=== PATIENT | male | born 1955 | race Caucasian/White ===

== ENCOUNTER → 2024-03-04 10:40 | Outpatient (BNVA) | payer MEDICARE, SELFPAY | PROVIDERS: PCP Registered Nurse; Referring Provider Registered Nurse; Visit Provider Podiatrist | DX: E11.9 Type 2 diabetes mellitus without complications (principal); M25.561 Pain in right knee; M25.562 Pain in left knee | CPT/HCPCS: 97760; 99203 ==

== ENCOUNTER → 2024-03-04 12:15 | Outpatient (CLI) | payer MEDICARE, SELFPAY ==
--- NOTE | 2024-03-04 12:08 | DI.RAD_ITS ---
Exam(s) XR FOOT RT COMPLETE EXAM: XR FOOT RT COMPLETE CLINICAL HISTORY: pain in right foot, M79.671. TECHNIQUE: 2D digital imaging was performed. COMPARISON: No exams were available for comparison FINDINGS: 3 views There is no evidence of fracture or diastasis of the Lisfranc joint. Great toe metatarsophalangeal j oint exhibits mild degenerative change. Other MTP joints appear unremarkable. On the medial aspect of the foot there is a sesamoid bone adjacent to the navicular tuberosity, this within the distal tibialis posterior tendon. No pes planus. Tiny inferior calcaneal spur. Some vascular calcification is also noted in this foot . IMPRESSION: As above. DATA REPOSITORY: RADIATION DOSE DELIVERED:
--- NOTE | 2024-03-04 12:18 | DI.RAD_ITS ---
Exam(s) XR FOOT LT COMPLETE EXAM: XR FOOT LT COMPLETE CLINICAL HISTORY: pain in left foot, M79.672. TECHNIQUE: 2D digital imaging was performed. COMPARISON: CR XR FOOT RT COMPLETE from 03/04/2024 FINDINGS: 3 views No evidence of fracture or diastasis of the Lisfranc joint. Some vascular calcifications noted at th e midfoot level. Also in the dorsalis pedis artery more proximally in the foot and in the posterior tibial arteries at the ankle level. The more medial of the 2 sesamoid bones subjacent to the great toe metatarsal head is noted to be bip artite. Great toe metatarsophalangeal joint appears unremarkable as do the other MTP joints. No pes planus. No inferior calcaneal spur. No degenerative changes nor erosions. IMPRESSION: No acute osseous findings in the foot. DATA REPOSITORY: RADIATION DOSE DELIVERED:
== END ==
PROVIDERS: PCP Registered Nurse; Visit Provider Podiatrist
DX: M79.672 Pain in left foot (principal); M79.671 Pain in right foot
CPT/HCPCS: 99203; 73630

== ENCOUNTER → 2024-05-12 09:24 | Outpatient (BNVA) | payer MEDICARE, SELFPAY | PROVIDERS: PCP Registered Nurse; Referring Provider Registered Nurse; Visit Provider Podiatrist | DX: E11.9 Type 2 diabetes mellitus without complications (principal); M25.561 Pain in right knee; M25.562 Pain in left knee | CPT/HCPCS: 99213 ==

== ENCOUNTER → 2024-05-26 12:55 | Outpatient (BNVA) | payer MEDICARE, SELFPAY | PROVIDERS: PCP Registered Nurse; Referring Provider Registered Nurse; Visit Provider Podiatrist | DX: E11.9 Type 2 diabetes mellitus without complications (principal); M25.561 Pain in right knee; M25.562 Pain in left knee | CPT/HCPCS: 99213 ==

== ENCOUNTER → 2024-07-13 13:01 | Outpatient (BNVA) | payer MEDICARE, SELFPAY | PROVIDERS: PCP Registered Nurse; Referring Provider Registered Nurse; Visit Provider Podiatrist | DX: Z09 Encounter for follow-up examination after completed treatment for conditions other than malignant neoplasm (principal); E11.9 Type 2 diabetes mellitus without complications; M25.561 Pain in right knee; M25.562 Pain in left knee | CPT/HCPCS: NC OV ==